=== PATIENT | female | born 2005 | race African-American/Black ===

== ENCOUNTER 2025-05-03 18:08 | Observation (INO) | payer OTHER, SELFPAY ==
--- OUTSIDE RECORDS SUMMARY | 2025-04-27 19:00 | XMS_ITS | Continuity of Care Document ---
Author Organization [facility] Address [address] [place] [address] Phone Care Team Providers Care Block Out Machine Operator Name Role Phone Inocencio PT, DPT, Carrol Unavailable Unavaila ble Procedures Procedure Date Waive Cancel or No Show - No Charge PT Evaluation High Complexity Therapeutic Activities Neuromuscular Re-Ed Therapeutic Exercise Advance Directives Directive Yes / No Effective Date File Name No Information Encounters Encounter Description Practice Location Reason(s) For Visit Diagnoses Date Provider Providers Copied on Encounter [facility], [address], [place], [place], [id number], tel:[phone] [place] No Information Inocencio Carrol. . Referring Provider: Physician Screen. [facility], [address], [place], [place], [id number], tel:[phone] [place] No Information Inocencio Carrol. . Referring Provider: Access Direct. Family History Family Member Type Diagnosis Age At Onset No Information Payers Payer name Insurance type Covered libertarian ID Authoriza tion(s) No Information Social History Type Description Quantity Date Captured Comments Sex Female Smoking Status No Information Chief Complaint And Reason For Visit No Information Reason For Referral Reason For Referral No Information Plan Of Treatment Date Type Action Status Appointment Geena Miguel BOOKED Appointment Geena Miguel BOOKED History Of Present Illness Encounter Date Complaint History Of Prese nt Illness No Information Functional Status Date Functional Assessmen t No Information Instructions Date Instruction Additional Infor mation No Information Assessments Type Assessment Date No Information Patient Care Teams Name Effective Dates (start - stop) Status Members No Information
[2025-05-03 18:14] VITALS: TEMP 36.6
--- OUTSIDE RECORDS SUMMARY | 2025-05-03 18:28 | XMS_ITS | Patient Health Record ---
Author Organization [facility] Address [address] [place] [address] Care Team Providers Care Seat Installer Name Role Phone ESTEBAN HOSKINS Unavailable [phone] Reason For Referral No Information Medications Medication SIG (Take, Route, Frequency, Duration) Notes Start Date End Date Status drug or medication *please revie w for potential update for e-prescription and drug interaction check* drug or medication Active Immunizations Vaccine Route Administration Date Status Comme nts Varicella Unknown 06/09/2005 Administered Varicella Unknown 01/14/2009 Administered Tdap Unknown 03/31/2015 Administered Pneumococcal conjugate PCV 13 Unknown 2004 Admini stered Pneumococcal conjugate PCV 13 Unknown 2004 Admini stered Pneumococcal conjugate PCV 13 Unknown 2004 Admini stered Pneumococcal conjugate PCV 13 Unknown 06/09/2005 Admini stered MMR Unknown 06/09/2005 Administered MMR Unknown 01/14/2009 Administered Meningococcal MCV4O (CVX 114) Unknown 03/31/2015 Admini stered IPV Unknown 01/14/2009 Administered Influenza, injectable, quadrivalent, preservative free, pediatric Unknown 06/09/2005 Administered Influenza, injectable, quadrivalent, preservative free, pediatric Unknown 07/14/2005 Administered Hib (PRP-T), 4 dose schedule Unknown 2004 Adminis tered Hib (PRP-T), 4 dose schedule Unknown 2004 Adminis tered Hib (PRP-T), 4 dose schedule Unknown 06/09/2005 Adminis tered Hep B, adolescent or pediatr ic 3 dose schedule Unknown 2004 Administered Hep A, ped/adol, 2 dose Unknown 11/29/2005 Administered Hep A, ped/adol, 2 dose Unknown 11/17/2006 Administered DTaP-Hep B-IPV Unknown 2004 Administered DTaP-Hep B-IPV Unknown 2004 Administered DTaP-Hep B-IPV Unknown 2004 Administered DTaP Unknown 11/29/2005 Administered DTaP Unknown 01/14/2009 Administered Problems Problem Type SNOMED Code ICD Code Onset Dates Problem Status W/U Status Risk Notes Problem Well child (896124694) Well child (V20.2) 05/17/2018 Active confirmed Problem Well child (545168996) Well child (668855312) 05/17/2018 Active confirmed Problem Normal weight (55679670) Normal weight (V85.52) 05/17/2018 Active confirmed Problem Normal weight (03494808) Normal weight (Z68.52) 05/17/2018 Active confirmed Problem Well child (190056685) Well child (Z00.129) 05/17/2018 Active confirmed Plan Of Treatment No Information
--- OUTSIDE RECORDS SUMMARY | 2025-05-03 18:28 | XMS_ITS | Clinical Summary ---
Author Organization [facility] Address [address] [place] [address] Care Team Providers Care Cooling Tower Technician Name Role Phone Kenyetta Wilson MD Primary Care Provider Source Comments [facility],non-owned Affiliates and Associated Physician Practices is amultiple site organization consisting of ambulatory clinics and hospital sitesin [place], [place], [place] and [place]. This disclosure is being madepursuant to the Care Everywhere program and may not contain all information available regarding this patient. Last updated 18.[facility] Allergies No known active allergies Medications * This document contains information received from the source organization and may not represent a complete record from that organization. * Be aware that medications may not be up to date on this document. Alwaysverify current medications with the patient. No known medications Active Problems Problem Noted Date Diagnosed Date Intentional drug overdose, initial encounter Suicide attempt 05/31/2023 Cannabis use, uncomplicated 05/31/2023 Social History Tobacco Use Types Packs/Day Years Used Date Smoking Tobacco: Never Smokeless Tobacco: Never Tobacco Cessation:Counseling Given: Not Answered Alcohol Use Standard Drinks/Week Comments Not Currently 0 (1 standard drink = 0.6 oz pur e alcohol) AUDIT-C Answer Date Recorded Q1: How often do you have a drink containing alcohol? Never 06/01/2023 Q2: How many drinks containi ng alcohol do you have on a typical day when you are drinking? Patient does not drink Q3: How often do you have si x or more drinks on one occasion? Never 06/01/2023 Overall Financial Resource Strain (CARDIA) Answe r Date Recorded How hard is it for you to pa y for the very basics like food, housing, medical care, and heating? Not hard at all 05/31/2023 [facility] Occupat ional Health - Occupational Stress Questionnaire Answer Date Recorded Do you feel stress - tense, restless, nervous, or anxious, or unable to sleep at night because your mind is troubled all the time - these days? Not at all 05/31/2023 Hunger Vital Sign Answer Date Recorded Within the past 12 months, y ou worried that your food would run out before you got the money to buy more. Never true 05/31/20 23 Within the past 12 months, t he food you bought just didn't last and you didn't have money to get more. Never true 05/31/2023 PRAPARE - Transportation Answer Date Re corded In the past 12 months, has l ack of transportation kept you from medical appointments or from getting medications? No 05/14 In the past 12 months, has l ack of transportation kept you from meetings, work, or from getting things needed for daily living? No 05/31/2023 Housing Stability Vital Sign Answer Acosta e Recorded In the last 12 months, was t here a time when you were not able to pay the mortgage or rent on time? No 05/31/2023 In the last 12 months, how many places have you lived? 1 05/31/2023 In the last 12 months, was t here a time when you did not have a steady place to sleep or slept in a assisted (including now)? No 05/31/2023 Comments Unknown Sex and Gender Information Value Date Recorded Sex Assigned at Not on file Legal Sex Female 1:14 PM CDT Gender Identity Not on file Sexual Orientation Not on file Last Filed Vital Signs Vital Sign Reading Time Taken Comments Blood Pressure 151/80 07/18/2024 7:42 PM CEMETERY VAULT INSTALLER Pulse 97 07/18/2024 7:42 PM CEMETERY VAULT INSTALLER Temperature 36.5 C (97.7 F) 07/18/2024 7:42 PM CEMETERY VAULT INSTALLER Respiratory Rate 20 07/18/2024 7:42 PM CEMETERY VAULT INSTALLER Oxygen Saturation 100% 07/18/2024 7:42 PM CEMETERY VAULT INSTALLER Inhaled Oxygen Concentration - - Weight 86.3 kg (190 lb 3.2 oz) 07/18/2024 7:42 P M CEMETERY VAULT INSTALLER Height 172.7 cm (5' 8) 07/18/2024 7:42 PM CEMETERY VAULT INSTALLER Body Mass Index 28.92 07/18/2024 7:42 PM CEMETERY VAULT INSTALLER Plan of Treatment Health Maintenance Due Date Last Done Comments HIV SCREENING 2019 HPV VACCINE (1 - 3-dose series) 2019 MENINGOCOCCAL (Group B) VACCINE SHARED DECISION-MAKING (1 of 2 - Standard) 2020 HEPATITIS C SCREENING 03/14/2022 DTAP/TDAP/TD VACCINES (1 - Tdap) 2023 HEPATITIS B VACCINE (1 of 3 - 19+ 3-dose series) 2023 CHLAMYDIA/GONORRHEA SCREENING 03/27/2024 03/27/2023 DEPRESSION SCREENING 08/14/2024 PAP SMEAR 2025 COVID-19 VACCINE (1 - 2023-2 5 season) 2025 INFLUENZA VACCINE (#1) 2025 5, 06/09/2005 ZOSTER VACCINE (1 of 2) 2054 HIB VACCINE Aged Out No longer eligi ble based on patient's age to complete this topic MENINGOCOCCAL GROUPS A/C/Y/W VACCINE Aged Out No longer eligible b ased on patient's age to complete this topic PNEUMOCOCCAL VACCINE Aged Out No long er eligible based on patient's age to complete this topic Procedures Procedure Name Priority Date/Time Associated Diagnosis Comments CHLAMYDIA + GC AMPLIFIED PROBE STAT 03/27/2023 4:58 PM CDT Screen for STD (sexually transmitted disease) from Last 3 Months or Most Recently Relevant to Health Maintenance Results * CHLAMYDIA + GC AMPLIFIED PROBE (03/27/2023 4:58 PM CDT) Chlamydia Amplified Probe Negative Negative 03/28/2023 12:50 AM CDT [facility] GC Amplified Probe Negative Negative 03/28/2023 12:50 AM CDT [facility] Microbiology ENTIRE VAGINA / Unknown Collection / Unknown 03/27/2023 4:58 PM CDT 03/27/2023 4:58 PM CDT Narrative [facility] - 03/28/2023 12:50 AM CDT Results based on detection/no detection of ribosomal RNA by amplified method. Betsy Cahse SENIOR INFORMATION SECURITY ANALYST-ASSOCIATE PROFESSOR OF [facility] - MICROBIOLOGY ORDERABLES Final Result [facility] [address] [place] [address], [facility] [phone] from Last 3 Months or Most Recently Relevant to Health Maintenance Insurance [place] Advance Directives * Full Code (Latest Code Status on File) Date Activated Date Inactivated Comments 05/31/2023 8:02 PM 06/02/2023 3:10 PM Care Teams Cooling Tower Technician Relationship Specialty Start Date End Date Kenyetta Wilson MD [address] [address] PCP - General Obstetrics and Gynecology 07/18/24
--- OUTSIDE RECORDS SUMMARY | 2025-05-03 18:28 | XMS_ITS | Clinical Summary ---
Author Organization [facility] Address [address] [place] [address] Care Team Providers Care Solution Design Engineer Name Role Phone Kenyetta Wilson MD Primary Care Provider Allergies No known active allergies Medications sertraline (ZOLOFT) 100 mg tabletIndicatio ns:Anxiety with Depression Take 1 tablet (100 mg total) by mouth daily before breakfast 3 Active Active Problems Problem Noted Date Diagnosed Date Closed fracture of left distal radius 05/24/2023 Closed nondisplaced fracture of styloid process of right ulna 05/24/2023 Closed fracture of right distal radius 3 Gestational hypertension, third trimester 2022 Surgical History Surgery Date Site/Laterality Comments WISDOM TOOTH EXTRACTION Family History Medical History Relation Name Comments Anesthesia problems Neg Hx Social History Tobacco Use Types Packs/Day Years Used Date Smoking Tobacco: Never Smokeless Tobacco: Never AUDIT-C Answer Date Recorded Q1: How often do you have a drink containing alcohol? Never 06/08/2023 Q2: How many drinks containi ng alcohol do you have on a typical day when you are drinking? Patient does not drink Q3: How often do you have si x or more drinks on one occasion? Never 06/08/2023 Personal Safety Answer Date Recorded Getting School Help Needed Not on file 05/24 Comments Unknown Sex and Gender Information Value Date Recorded Sex Assigned at Not on file Legal Sex Female 7:27 PM TYPE PHOTOGRAPHY SUPERVISOR Gender Identity Not on file Sexual Orientation Not on file Obstetrics History Last Filed Vital Signs Vital Sign Reading Time Taken Comments Blood Pressure 104/71 05/08/2023 12:30 AM CDT Pulse 89 05/08/2023 12:30 AM CDT Temperature 36.7 C (98 F) 05/07/2023 5:41 PM CDT Respiratory Rate 22 05/08/2023 12:30 AM CDT Oxygen Saturation 99% 05/08/2023 12:30 AM CDT Inhaled Oxygen Concentration - - Weight 93 kg (205 lb) 06/08/2023 8:15 AM CDT Height 172.7 cm (5' 8) 06/08/2023 8:15 AM CDT Body Mass Index 31.17 06/08/2023 8:15 AM CDT Plan of Treatment Health Maintenance Due Date Last Done Comments Cervical Cancer Screening 2004 Depression Screening 2004 Hepatitis C Screening 2004 HPV Vaccines (1 - 3-dose series) 2019 Meningococcal B Vaccine (1 o f 2 - Standard) 2020 Regular Well Visit/Exam 18-64 2022 DTaP/Tdap/Td Vaccine (7 - Td or Tdap) 03/31/2025 03/31/2015, 01/14/2009, 11/29/2005, Additional history exists Influenza Vaccine (#1) 2025 07/14/2005, 2004 Hepatitis B Screening Completed 2004 , 2004, 2004, Additional history exists Pneumococcal vaccine <65 Completed 005, 2004, 2004, Additional history exists Varicella Vaccines Completed 01/14/2009, 06/09/2005 Meningococcal Vaccine Completed 04/09/2021, 015 Insurance [facility] CHO[employer] PLUS Care Teams Solution Design Engineer Relationship Specialty Start Date End Date Kenyetta Wilson MD [address] [facility] [address] [place] [address] PCP - General Obstetrics and Gynecology 05/07/23
--- OUTSIDE RECORDS SUMMARY | 2025-05-03 18:28 | XMS_ITS | Encounter Summary ---
Author Organization [facility] Address [address] [place] [address] Care Team Providers Care Sewer And Inspector Name Role Phone Kenyetta Wilson MD Primary Care Provider Reason for Visit * Reason Onset Date Comments Returned Call 03/29/2023 Results 03/29/2023 Patient Requested Call 03/29/2023 Encounter Details Date Type Department Care Team (Late st Contact Info) Description 03/29/2023 Telephone [facility] [address] [place] [address] Carmen Leong APRN-INSULATION MANAGER [address] [place] [address] Returned Call; Results; Patient Requested Call Social History Tobacco Use Types Packs/Day Years Used Date Smoking Tobacco: Never Smokeless Tobacco: Never Comments No Sex and Gender Information Value Date Recorded Sex Assigned at Not on file Legal Sex Female 1:14 PM CDT Gender Identity Not on file Sexual Orientation Not on file documented as of this encounter Miscellaneous Notes * Telephone Encounter - Cristy Monterroso - 03/29/2023 2:36 PM CDT Who is calling? self What is the reason for call? missed call test results Expected Response from the Clinic? Call back documented in this encounter Plan of Treatment Not on file documented as of this encounter Visit Diagnoses Not on filedocumented in this encounter Care Teams Sewer And Inspector Relationship Specialty Start Date End Date Kenyetta Wilson MD [address] [facility] [address], [place] [address] PCP - General Obstetrics and Gynecology 07/18/24 documented as of this encounter
--- OUTSIDE RECORDS SUMMARY | 2025-05-03 18:28 | XMS_ITS | Clinical Summary ---
Author Organization [facility] Address [address] [place] [address] Phone Care Team Providers Care Garbage Worker Name Role Phone Unavailable Primary Care Provider Unavailabl e Allergies No known active allergies Medications No known medications Active Problems Problem Noted Date Diagnosed Date Gestational hypertension, third trimester 2022 Normal labor 03/13/2023 Encounters Date Type Department Care Team Description 04/01/2025 External Device Data [facility] ABSTRACTION Provider, Abstract from Last 3 Months Social History Tobacco Use Types Packs/Day Years Used Date Smoking Tobacco: Never Passive Smoke Exposure: Never Smokeless Tobacco: Never Tobacco Cessation:Counseling Given: Not Answered Alcohol Use Standard Drinks/Week Comments Not Currently 0 (1 standard drink = 0.6 oz pur e alcohol) Adolescent Education Answer Date Record ed Getting School Help Needed Not on file 02/28 Feeling Safe Answer Date Recorded Are you in a relationship wi th someone who hurts you emotionally and/or physically? No 03/13/2023 Comments No Sex and Gender Information Value Date Recorded Sex Assigned at Not on file Legal Sex Female 4:09 PM CDT Gender Identity Not on file Sexual Orientation Not on file Last Filed Vital Signs Vital Sign Reading Time Taken Comments Blood Pressure 100/60 04/10/2024 2:21 PM CDT Pulse 90 03/15/2023 7:46 AM CDT Temperature 36.4 C (97.5 F) 03/15/2023 7:46 AM CDT Respiratory Rate 18 03/15/2023 7:46 AM CDT Oxygen Saturation 99% 03/13/2023 8:16 PM CDT Inhaled Oxygen Concentration - - Weight 81.6 kg (180 lb) 04/10/2024 2:21 PM CDT Height 172.7 cm (5' 8) 04/10/2024 2:21 PM CDT Body Mass Index 27.37 04/10/2024 2:21 PM CDT Plan of Treatment Health Maintenance Due Date Last Done Comments CHLAMYDIA SCREENING (ANNUAL) 11-24 YEARS 2015 HPV VACCINES (1 - 3-dose series) 2019 DTAP/TDAP/TD VACCINES (1 - Tdap) 2023 HEPATITIS B VACCINES (1 of 3 - 19+ 3-dose series) 12/2022 INFLUENZA VACCINE (#1) 2025 CERVICAL CANCER SCREENING 2025 HPV/Cotest (21-29) 2025 PAP SMEAR 2025 Advance Directives For more information, please contact: [phone] * Full Code (Latest Code Status on File) Date Activated Date Inactivated Comments 03/13/2023 9:40 PM 03/15/2023 3:43 PM * Full Code Date Activated Date Inactivated Comments 03/13/2023 8:56 AM 03/13/2023 9:40 PM * Full Code Date Activated Date Inactivated Comments 03/13/2023 7:05 AM 03/13/2023 8:56 AM
--- OUTSIDE RECORDS SUMMARY | 2025-05-03 18:28 | XMS_ITS | Encounter Summary ---
Author Organization [facility] Address [address] [place] [address] Phone Care Team Providers Care Licensed Customs Broker Name Role Phone Kenyetta Wilson MD Primary Care Provider Encounter Details Date Type Department Care Team (Latest Contact Info) Description 05/24/2023 Orders Only [facility] HAND/WRIST Scanning, Provider Social History Tobacco Use Types Packs/Day Years Used Date Smoking Tobacco: Never Smokeless Tobacco: Never Personal Safety Answer Date Recorded Have you ever been in or are you currently in a harmful physical or emotional relationship or is someone making you feel afraid or unsafe? Denies 05/07/2023 Comments Unknown Sex and Gender Information Value Date Recorded Sex Assigned at Not on file Legal Sex Female 7:27 PM ACCOUNT INSTALLATION SPECIALIST Gender Identity Not on file Sexual Orientation Not on file documented as of this encounter Plan of Treatment Not on file documented as of this encounter Procedures Procedure Name Priority Date/Time Associated Diagnosis Comments SCAN - RADIOLOGY/IMAGING 05/24/2023 documented in this encounter Results * SCAN - RADIOLOGY/IMAGING (05/24/2023) Anatomical Region Laterality Modality Other us Provider Scanning Edited Result - Final documented in this encounter Visit Diagnoses Not on filedocumented in this encounter Care Teams Licensed Customs Broker Relationship Specialty Start Date End Date Kenyetta Wilson MD [address] [place] [address] PCP - General Obstetrics and Gynecology 05/07/23 documented as of this encounter
--- OUTSIDE RECORDS SUMMARY | 2025-05-03 18:28 | XMS_ITS | Encounter Summary ---
Author Organization [facility] Address [address] [place] [address] Phone Care Team Providers Care Paleontological Helper Name Role Phone Kenyetta Wilson MD Primary Care Provider Encounter Details Date Type Department Care Team (Latest Contact Info) Description 05/10/2023 Orders Only LYON OS HAND/WRIST Scanning, Provider [...] on file Legal Sex Female 7:27 PM ELL TUTOR Gender Identity Not on file Sexual Orientation Not on file documented as of this encounter Plan of Treatment Not on file documented as of this encounter Procedures Procedure Name Priority Date/Time Associated Diagnosis Comments SCAN - RADIOLOGY/IMAGING 05/10/2023 documented in this encounter Results * SCAN - RADIOLOGY/IMAGING (05/10/2023) Anatomical Region Laterality Modality Other us Provider Scanning Final Result documented in this encounter Visit Diagnoses Not on filedocumented in this encounter Care Teams Paleontological Helper Relationship Specialty Start Date End Date Kenyetta Wilson MD [address] [place] [address] PCP - General Obstetrics and Gynecology 05/07/23 documented as of this encounter
[2025-05-03 18:30] VITALS: BP 125/67; PULSE 88
[2025-05-03 18:31] VITALS: BMI 33.6
--- NOTE | 2025-05-03 18:32 | OBADM ---
This patient, Geena Miguel, admitted to the OB room OB Post 116 for observation. Patient/family oriented to hospital policies and general routines including ID bracelet, bed and alarms, visiting hours, pain management, procedures, bathroom and other care routines, personal items, smoking policy, room service/diet, and visiting hours. Patient/Family are encouraged to report perceived risks to care and to ask questions if they do not understand what they are told or what they should do.
[2025-05-03 18:45] VITALS: BP 127/67; PULSE 90
[2025-05-03 18:56] LABS: Add Urine Microscopic? YES; Appearance Urine Clear (Clear); Glucose Urine UA Negative (Negative); Leukocyte Esterase Ur 3+ LEU/UL (Negative); Need Manual Microscopic Reviewed; Nitrate Urine Negative (Negative); Non Pathogenic Casts 0-2; Specific Grav Ur 1.018 (1.001-1.035)
[2025-05-03 19:00] VITALS: BP 117/61; PULSE 89
--- NOTE | 2025-05-03 19:04 | PC.NURSE ---
Call placed to Dr. Loyola with report of pt symptoms and c/o vaginal pressure, pain, lower abd pain. FHR, CTX, Vitals and Labs reported. Order to discharge pt home undelivered with Keflex 500 mg twice daily for 5 days and to come back if pain worsens.
[2025-05-03] MEDS: CEPHALEXIN 500 MG CAPSULE PO (19:18)
--- NOTE | 2025-05-03 19:25 | PC.NURSE ---
Discharge instructions explained and given to pt. Discussed antibiotics and suspected UTI and to return if pain continues/increases. Pt stated understanding, all questions and concerns answered. Pt waiting for her ride before leaving.
--- NOTE | 2025-05-03 20:18 | PC.NURSE ---
Pt discharged home undelivered in stable condition per order from Dr. Loyola. Pt ambulated out of department with all belongings. Discharge paperwork in hand.
--- NOTE | 2025-05-06 09:43 | P.PNOB_ITS ---
OB - Triage/Final Diagnosis Visit Information Comments/Additional reasons for admission: I have assessed the risk for this patient, Geena Miguel, and determined that she would benefit from observation care. Evaluation Laboratory results: Laboratory Tests 05/03/25 18:35 Urine Color Yellow Urine Appearance Clear Urine pH 7.5 Ur Specific [place] 1.018 Urine Protein Trace Urine Glucose (UA) Negative Urine Ketones Negative Ur Blood (Man) Negative Urine Nitrate Negative Urine Bilirubin Negative Urine Urobilinogen 2.0 H Add Ur Microanalysis Reviewed Leukocyte Esterase Rfl 3+ H Urine RBC 0-2 Urine WBC 0-5 Ur Squamous Epith Cells Occasional Urine Bacteria 1+ H Urine Casts 0-2 Final Diagnosis (1) Pelvic pressure in : Code(s): O26.899 - Other specified related conditions, unspecified trimester; R10.2 - Pelvic and perineal pain Status: Acute
== END 2025-05-03 20:18 | disposition home or self-care (01) ==
PROVIDERS: Obstetrics & Gynecology; Admitting Provider Obstetrics & Gynecology; Visit Provider Obstetrics & Gynecology
DX: O26.893 Other specified pregnancy related conditions, third trimester (principal); R10.2 Pelvic and perineal pain; Z3A.36 36 weeks gestation of pregnancy
CPT/HCPCS: 81001; 87086; A9270; G0378; G0379

== ENCOUNTER 2025-05-27 15:45 | Inpatient (IN) | payer OTHER, SELFPAY ==
[2025-05-27] VITALS (57 sets, daily range): BP systolic 88–151; BP diastolic 35–107; PULSE 76–183; RESP 17–18; TEMP 36.8–37.4; O2SAT 96–100; BMI 33.7
[2025-05-27] MEDS: LACTATED RINGERS 1,000 ML 125 ML (16:07)
--- NOTE | 2025-05-27 16:23 | LDADM ---
This patient, Geena Miguel, was admitted to Labor/Delivery/Recovery 104 on 05/27/25 at 15:45. Plans for labor, pain management and were discussed with patient. Patient/family oriented to hospital policies and general routines including ID bracelet, bed and alarms, visiting hours, pain management, procedures, bathroom and other care routines, personal items, smoking policy, room service/diet and guest tray routines, security routines, and visiting hours. Patient/Family are encouraged to report perceived risks to care and to ask questions if they do not understand what they are told or what they should do. See OBIX for further documentation.
[2025-05-27 16:28] LABS: Hematocrit 33.8 % (37.0-47.0); Hemoglobin 10.3 g/dL (12.0-15.0); Immature Granulocyte Percent A 0.5 % (0-0.5); Lymphocytes Absolute Auto 3.08 K/mm3 (0.9-3.2); Mean Corpuscular HGB Conc 30.5 g/dl (32-36); Mean Corpuscular Hemoglobin 23.2 pg (26-34); Mean Corpuscular Volume 76.1 fl (80-100); Nucleated Red Blood Cells Absolute Auto 0.000 K/mm3 (0.0-0.012); Nucleated Red Blood Cells Perc 0.0 % (0.0-0.2); Platelet Count Result 289 k/mm3 (150-375); Red Blood Count 4.44 M/mm3 (4.2-5.4); White Blood Count 12.2 K/mm3 (4.5-10.0)
[2025-05-27] MEDS: AMPICILLIN SODIUM 2 GM in SODIUM CHLORIDE 0.9% IV 100 ML 200 ML IVPB (16:34)
--- NOTE | 2025-05-27 17:10 | WPDANESEPPF ---
Anes - Initial Pre Proc Eval Date/Time: 05/27/25 17:10 Surgeon: Kirby Lawson MD Pre Op Diagnosis: LABOR Patient Data Age: 20 Gender: F Height: 1.73 m Weight: 100.5 kg Last Vital Signs Pulse 99 05/27/25 17:09 BP 149/35 H 05/27/25 17:09 Pulse Ox 98 05/27/25 17:07 O2 Del Method Room Air 05/27/25 16:15 Allergies Allergy/AdvReac Type Severity Reaction Status Date / Time No Known Allergies Allergy Verified 05/27/25 16:33 Home Medications ?Medication ?Instructions ?Recorded ?Confirmed ?Type vit no.95-ferrous 1 tablet PO DAILY 04/30/25 05/27/25 History fumarate 28 mg-folic acid 800 mcg tablet () valacyclovir 500 mg tablet 500 mg PO Q12H 04/30/25 05/27/25 History (Valtrex) sertraline 100 mg tablet mg 05/27/25 History Laboratory Tests 05/27/25 16:11 WBC 12.2 H K/mm3 (4.5-10.0) RBC 4.44 M/mm3 (4.2-5.4) Hgb 10.3 L g/dL (12.0-15.0) Hct 33.8 L % (37.0-47.0) MCV 76.1 L fl (80-100) MCH 23.2 L pg (26-34) MCHC 30.5 L g/dl (32-36) RDW 16.9 H % (11.5-14.5) Plt Count 289 k/mm3 (150-375) MPV 12.6 H fl (7.4-10.4) Immature Gran % (Auto) 0.5 % (0-0.5) Neut % (Auto) 66.2 % (45.5-73.1) Lymph % (Auto) 25.3 % (18.3-44.2) [place] % (Auto) 7.4 % (2.6-8.5) Eos % (Auto) 0.2 % (0-4.4) Baso % (Auto) 0.4 % (0.2-1.2) Lymph # (Auto) 3.08 K/mm3 (0.9-3.2) [place] # (Auto) 0.9 H K/mm3 (0.1-0.6) Eos # (Auto) 0.0 K/mm3 (0-0.3) Baso # (Auto) 0.1 K/mm3 (0.0-0.1) Abs Immat Gran (auto) 0.06 H K/mm3 (0.00-0.031) Absolute Neuts (auto) 8.1 H K/mm3 (1.3-6.7) Absolute Nucleated RBC 0.000 K/mm3 (0.0-0.012) Nucleated RBC % 0.0 % (0.0-0.2) HIV 1&2 Ab/P24 Ag 4thGn Pending Blood Type O Positive Antibody Screen Pending Patient hx anesthesia problems: none Family hx anesthesia problems: none Results Review: All pre-operative results and documents have been reviewed as part of the pre-operative evaluation. [facility] Family History Family History Other No pertinent family history Social History Social History Smoking status: Never smoker Substance use: never Lack of Transportation: No Lack of Food: Never True Current Housing: I Have Housing Concerned About Future Housing: No Difficulty Paying Gas/Electric Bills: No Difficulty Paying for Meds: No Currently Unemployed: YES Education: High School Diploma/GED Difficulty w/ Childcare or Family Care: No Spiritual care concerns: No Anes - Eval Final PreProcedure Day of Procedure 05/27/25 17:10 Patient weight: obese Heart: regular rate and rhythm Lungs: clear to auscultation Neurological: alert and oriented Last oral intake: >/= 8 hours ASA classification: III Emergent: no Anesthetic plan: proceed Anesthesia type and monitoring: regional epidural and standard monitoring Results Review: All pre-operative results and documents have been reviewed as part of the pre-operative evaluation. Informed Consent: The patient's anesthetic plan and its attendant risks and benefits were discussed with the patient/family/POA. Questions were solicited and answers provided to the satisfaction of the patient/family/POA.
[2025-05-27 17:11] LABS: Syphilis IgG/IgM Antibody Non-Reactive (Nonreactive)
--- OUTSIDE RECORDS SUMMARY | 2025-05-27 17:24 | XMS_ITS | Encounter Summary ---
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
--- OUTSIDE RECORDS SUMMARY | 2025-05-27 17:24 | XMS_ITS | Clinical Summary ---
Author Organization [facility] Address [address] [place] [address] Care Team Providers Care Metal Alloy Scientist Name Role Phone Kenyetta Wilson MD Primary Care Provider Source Comments [facility],non-owned Affiliates and Associated Physician Practices is amultiple site organization consisting of ambulatory clinics and hospital sitesin [place], [place], [place] and [place]. This disclosure is being madepursuant to the Care Everywhere program and may not contain all information available regarding this patient. Last updated 18.[facility] Allergies No known active allergies Medications * [...] and heating? Not hard at all 05/31/2023 [facility] Occupat [facility] - Occupational Stress [...] place to sleep or slept in a fpc (including now)? No 05/31/2023 Comments Unknown Sex and Gender Information Value Date Recorded Sex Assigned at Not on file Legal Sex Female 1:14 PM CDT Gender Identity Not on file Sexual Orientation Not on file Last Filed Vital Signs Vital Sign Reading Time Taken Comments Blood Pressure 151/80 07/18/2024 7:42 PM LICENSED NURSE PRACTITIONER Pulse 97 07/18/2024 7:42 PM LICENSED NURSE PRACTITIONER Temperature 36.5 C (97.7 F) 07/18/2024 7:42 PM LICENSED NURSE PRACTITIONER Respiratory Rate 20 07/18/2024 7:42 PM LICENSED NURSE PRACTITIONER Oxygen Saturation 100% 07/18/2024 7:42 PM LICENSED NURSE PRACTITIONER Inhaled Oxygen Concentration - - Weight 86.3 kg (190 lb 3.2 oz) 07/18/2024 7:42 P M LICENSED NURSE PRACTITIONER Height 172.7 cm (5' 8) 07/18/2024 7:42 PM LICENSED NURSE PRACTITIONER Body Mass Index 28.92 07/18/2024 7:42 PM LICENSED NURSE PRACTITIONER Plan of Treatment Health Maintenance Due Date [...] Negative Negative 03/28/2023 12:50 AM CDT [facility]CRO[facility] GC Amplified Probe Negative Negative 03/28/2023 12:50 AM CDT [facility]CRO[facility]OLOG[facility] Microbiology ENTIRE VAGINA / Unknown Collection / Unknown 03/27/2023 4:58 PM CDT 03/27/2023 4:58 PM CDT Narrative [facility]CROBIOLOG[facility] - 03/28/2023 12:50 AM CDT Results based on detection/no detection of ribosomal RNA by amplified method. Betsy Chase MECHANICAL ENGINEERING MANAGER-CITY MAINTENANCE MANAGER LAB - MICROBIOLOGY ORDERABLES Final Result [facility]CROBIOLOG[facility] [address] [place] [address], [facility] [phone] from Last 3 Months or Most Recently Relevant to Health Maintenance Insurance [place] Advance Directives * Full Code (Latest Code Status on File) Date Activated Date Inactivated Comments 05/31/2023 8:02 PM 06/02/2023 3:10 PM Care Teams Metal Alloy Scientist Relationship Specialty Start Date End Date Kenyetta Wilson MD [address] [address] PCP - General Obstetrics and Gynecology 07/18/24
--- OUTSIDE RECORDS SUMMARY | 2025-05-27 17:24 | XMS_ITS | Encounter Summary ---
Author Organization [facility] Address [address] [place] [address] Care Team Providers Care Pool Technician Name Role Phone Kenyetta Wilson MD Primary Care Provider Reason for Visit * Reason Onset Date Comments Returned Call 03/29/2023 Results 03/29/2023 Patient Requested Call 03/29/2023 Encounter Details Date Type Department Care Team (Late st Contact Info) Description 03/29/2023 Telephone [facility] [address] [place] [address] Carmen Leong APRN-HOME ENERGY RATER [address] [place] [address] Returned Call; Results; Patient Requested [...] on filedocumented in this encounter Care Teams Pool Technician Relationship Specialty Start Date End Date Kenyetta Wilson MD [address] [facility] [address] [address] PCP - General Obstetrics and Gynecology 07/18/24 documented as of this encounter
--- OUTSIDE RECORDS SUMMARY | 2025-05-27 17:24 | XMS_ITS | Clinical Summary ---
Author Organization [facility] Address [address] [place] [address] Phone Care Team Providers Care Novelty Dipper Name Role Phone Unavailable Primary Care Provider [...] Advance Directives For more information, please contact: [phone] * Full Code (Latest Code Status on File) Date Activated Date Inactivated Comments 03/13/2023 9:40 PM 03/15/2023 3:43 PM * Full Code Date Activated Date Inactivated Comments 03/13/2023 8:56 AM 03/13/2023 9:40 PM * Full Code Date Activated Date Inactivated Comments 03/13/2023 7:05 AM 03/13/2023 8:56 AM
--- OUTSIDE RECORDS SUMMARY | 2025-05-27 17:24 | XMS_ITS | Encounter Summary ---
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
--- OUTSIDE RECORDS SUMMARY | 2025-05-27 17:24 | XMS_ITS | Data Portability ---
Author Organization [facility] [place] Address [address] [place] [address] [place] [address] Care Team Providers Care Heater Room Helper Name Role Phone JAIRO SALAZARA Primary Care Provider Assessment Encounter Date Assessment Date Assessment LastModified by Organization Details LastModified Time 05/02/2025 05/02/2025 Patient is _36__weeks . Discussed plan. [email or web address] Not available 05/02/2025 09:53:57 05/09/2025 05/09/2025 Patient is _37__weeks . Discussed plan. [email or web address] Not available 05/09/2025 14:00:08 05/21/2025 05/21/2025 Patient is _38__weeks . Discussed plan. [email or web address] Not available 05/21/2025 12:18:07 Plan of Treatment Reminders Order Date Submit Date Provider Last Modified By Organization Details Last Modified Time Details Appointments OB ROUTINE 2024 11:15A Ross Stovall CNM Not available Not available Not available Lab None recorded. Referral None recorded. Procedures None recorded. Surgeries None recorded. Imaging US, obstetric , follow-up 2024 025 [email or web address] [place], [address], [place], [address], 05/21/2025 11:30:49 US, obstetric , follow-up 2024 025 [email or web address] [place], [address], [place], [address], 04/23/2025 16:21:32 Medication Orders Diflucan 150 mg tablet 2024 025 [id number], [address] [place], [id number], 05/09/2025 12:40:36 Patient TargetsNo targets recorded. Patient InstructionsNo instructions recorded. Reason for Referral None Reported. Results Created Date Observation Date Name Description Value Unit Range Abnormal Flag Note LastModifiedBy Organization Detail LastModifiedTime 05/02/2005/02/2025 CULTU RE: GROUP B STREP SCREE N, REFLE X SUSCE PTIBI LITY result report SEE RESULT S BELOW abnormal Test: Cultu re: Group B Strep , Refle x Susce ptibi lity ([facility]/ [facility]/K [facility] ) Speci men Sourc e: Vagin a/Rec mary Speci men Type: Vagin al/Re ctal Speci men Date: 2024 1045 Resul t Date: 2024 1426 Resul t Statu s: Final resul t Abnor mal: Yes Resul ting Lab: [facility] [address] [facility] [address] Tel: CULTU RE ----- ----- ----- --- Posit mamie for Strep tococ cus agala ctiae (Grou p B) (Abno rmal) Clind amyci n = resis tant, eryth romyc in = resis tant. Cefaz ishan may be used for intra partu m proph ylaxi s in penic illin -marisol rgic women at low risk, and Vanco mycin is recom rafaela d for women at high risk for anaph ylaxi s. Susce ptibi lity testi ng is not neces carlos for these drugs . Not Available [facility] (Lab) [address] [facility], [place], [address], 05/06/2025 15:30:11 03/26/2003/26/2025 US, obste tric, follo w-up No observ ation record ed. [facility] [address], [place], [address], 03/26/2025 18:50:29 03/26/2003/26/2025 US, obste tric, follo w-up No observ ation record ed. [email or web address] [address], [place], [address], 03/31/2025 17:53:14 04/15/2004/15/2025 US, obste tric, limit ed No observ ation record ed. [facility] [address], [place], [address], 04/15/2025 12:59:54 04/15/20 25 04/15/2025 US, obste tric, limit ed No observ ation record ed. [email or web address] [address], [place], [address], 04/16/2025 11:28:50 04/23/20 25 04/23/2025 US, obste tric, follo w-up No observ ation record ed. [email or web address] [place] [address], [place], [address], 04/23/2025 13:18:41 04/23/2004/23/2025 US, obste tric, follo w-up No observ ation record ed. [email or web address] [address], [place], [address], 05/02/2025 15:43:50 05/03/2005/03/2025 non-s tress test No observ ation record ed. [address], [place], [address], 05/07/2025 12:44:11 05/03/20 25 05/03/2025 non-s tress test No observ ation record ed. [email or web address], [place], [address], 05/07/2025 12:43:56 05/21/20 25 05/21/2025 US, obste tric, follo w-up No observ ation record ed. [email or web address] [place] [address], [place], [address], 05/21/2025 15:09:31 05/21/20 25 05/21/2025 US, obste tric, follo w-up No observ ation record ed. [email or web address] [address], [place], [address], 05/21/2025 12:22:23 Result Notes None recorded. Problems Name Problem SNOMED Code Status Onset Date Resolution Date Notes Provider Name and Address Organization Details Recorded Time Mixed anxiety and depressiv e disorder 858055189 Active 2024 Shawanda lind, [facility] 5 11:37:49 Herpes simplex 47854299 Active 2024 plan 36 week valcyclov pj Stovall CNM [address], [place], [address], [facility] 5 17:01:14 30708226 Active 2024 Shawanda lind, [facility] 5 16:44:56 Herpes simplex 64017733 Active 2024 plan 36 week valcyclov pj Stovall CNM [address], [place], [address], [facility] 5 17:01:14 Problem Notes None recorded. Procedures Surgical History Date Name Laterality Status Provider Name and Address Organization Details Recorded Time 4 extraction of wisdom tooth completed Shawanda Gonzalez [facility] 12/04/2024 12:38:51 Imaging Results None recorded. Procedure Notes None recorded. Medical Equipment None Reported. Allergies No known drug allergies Medications Name Sig Start Date Stop Date Status Note LastModified by Organization Details LastModified Time amoxicillin 500 mg capsule TAKE 1 CAPSULE BY MOUTH TWICE DAILY FOR 7 DAYS 12/04 completed Not Available Not Available Not Available cetirizine 10 mg tablet TAKE 1 TABLET BY MOUTH DAILY 12/04 completed Not Available Not Available Not Available fluconazole 150 mg tablet TAKE 1 TABLET BY MOUTH NOW AND TAKE 1 TABLET IN 48 HOURS active Not Available Not Available No t Available sertraline 100 mg tablet TAKE 1 TABLET BY MOUTH ONCE DAILY 12/04 completed Not Available Not Available Not Available valacyclovir 500 mg tablet TAKE 1 TABLET BY MOUTH TWICE DAILY active Not Available Not Available No t Available sulfamethoxa zole 800 mg-trimethop rim 160 mg tablet TAKE 1 TABLET BY MOUTH TWICE DAILY FOR 7 DAYS 12/04 completed Not Available Not Available Not Available cephalexin 500 mg capsule TAKE 1 CAPSULE BY MOUTH EVERY 12 HOURS FOR 5 DAYS 05/09 completed Not Available Not Available Not Available amoxicillin 875 mg-potassium clavulanate 125 mg tablet TAKE 1 TABLET BY MOUTH TWICE DAILY FOR 7 DAYS 12/04 completed Not Available Not Available Not Available active Not Available Not Avai lable Not Available Vitals Date Recorded Body height Body mass index (BMI) Body weight Systolic And Diastolic Provider Name and Address Organization Details Last Updated DateTime 04/23/2025 170.18 cm 34.3 kg/m2 17722.73 g 121/81 mm[Hg] [place] [facility] 04/23/2025 12:36:58 Date Recorded Body height Body mass index (BMI) Body weight Systolic And Diastolic Provider Name and Address Organization Details Last Updated DateTime 05/02/2025 170.18 cm 34.6 kg/m2 914418.91 g 120/75 mm[Hg] [facility] 05/02/2025 09:43:49 Date Recorded Body height Body mass index (BMI) Body weight Systolic And Diastolic Provider Name and Address Organization Details Last Updated DateTime 05/09/2025 170.18 cm 35.4 kg/m2 984111.88 g 124/68 mm[Hg] Anna Hutchinson [facility] 05/09/2025 12:28:01 Date Recorded Body height Body mass index (BMI) Body weight Systolic And Diastolic Provider Name and Address Organization Details Last Updated DateTime 05/21/2025 170.18 cm 35.7 kg/m2 239619.06 g 120/78 mm[Hg] Anna Hutchinson [facility] 05/21/2025 11:25:02 Social History Question Answer Notes LastModified by Organizat ion Details LastModified Time Tobacco Smoking Status Never Smoker Shawanda lind [facility] 12/04/2024 12:38:35 Do You Have An Advance Directive? No [email or web address] Information n ot available 12/04/2024 If You Are , What Was Your Level Of Alcohol Consumption Prior To ? None [email or web address] Information not available 12/04/2024 How Many Years Have You Consumed Alcohol? 0 [email or web address] Information not available 12/04/2024 Are You Blind Or Do You Have Difficulty Seeing? No [email or web address] Information n ot available 12/04/2024 What Is Your Level Of Caffeine Consumption? Occasional [email or web address] Information not available 12/04/2024 How Much Tobacco Do You Chew? None [email or web address] Information not available 12/04/2024 In The 14 Days Before Symptom Onset, Have You Had Close Contact With A Laboratory-confirm ed COVID-19 While That Case Was Ill? No [email or web address] Information n ot available 12/04/2024 In The 14 Days Before Symptom Onset, Have You Had Close Contact With A Person Who Is Under Investigation For COVID-19 While That Person Was Ill? No [email or web address] Information not available 12/04/2024 Have You Been To An Area Known To Be High Risk For COVID-19? No [email or web address] Information not available 12/04/2024 Are You Deaf Or Do You Have Serious Difficulty Hearing? No [email or web address] Information not available 12/04/2024 What Type Of Diet Are You Following? REGULAR [email or web address] Information n ot available 12/04/2024 What Is The Highest Grade Or Level Of School You Have Completed Or The Highest Degree You Have Received? [id number] [email or web address] Information not available 12/04/2024 Are There Any Guns Present In Your Home? No [email or web address] Information not available 12/04/2024 Do You Use Protection During Sex? No [email or web address] Information not available 12/04/2024 Do You Use Your Seat Belt Or Car Seat Routinely? Yes [email or web address] Information not available 12/04/2024 Are You Sexually Active? Yes Information not available 03/26/2025 Do You Have Smoke And Carbon Monoxide Detectors In Your Home? Yes [email or web address] Information not available 12/04/2024 How Much Tobacco Do You Smoke? No [email or web address] Information not available 12/04/2024 Do You Use Sunscreen Routinely? No [email or web address] Information not available 12/04/2024 How Many Years Have You Smoked Tobacco? 0 [email or web address] Information not available 12/04/2024 Have You Used IV Drugs? No [email or web address] Information not available 12/04/2024 Do You Have Difficulty Walking Or Climbing Stairs? No [email or web address] Information not available 12/04/2024 Sex: Unknown Functional Status Question Answer Note LastModified by Organizat ion Details LastModified Time Do you use any illicit or recreational drugs? No [email or web address] Information not available 12/04/2024 Do you or have you ever used any other forms of tobacco or nicotine? No [email or web address] Information not available 12/04/2024 What is your level of alcohol consumption? None [email or web address] Information not available 12/04/2024 Are you currently employed? No [email or web address] Information not available 05/02/2025 Are you able to walk independently without assistance or assistive devices? YESWOREST [email or web address] Information not available 12/04/2024 Are you able to care for yourself independently? Yes [email or web address] Information not available 12/04/2024 Do you have difficulty dressing, bathing, grooming, or toileting? No [email or web address] Information not available 12/04/2024 What is your exercise level? Occasional [email or web address] Information not available 12/04/2024 Mental Status Question Answer Note LastModified by Organization D etails LastModified Time Do you feel stressed (tense, restless, nervous, or anxious, or unable to sleep at night)? [id number] [email or web address] Information not available 12/04/2024 Family History Relationship Description Onset Age of this Age Resolved Age Notes LastModified by Organization Details LastModified Time Unspecified Relation Family history unknown [email or web address] Not available 12/04 12:37:24 Medical History Condition Response Allergies (Food, seasonal, environmental ) Y Other N Breast Cancer N Drug/Latex Allergies/Reactions N Blood Transfusion N Dermatologic Disorders N Lung Disease N Defects or Inherited Disease N Breast Problem N Gestational Diabetes N Hematologic disorders N Anesthesia Complications N History of STI Y Deep Vein Thrombosis N Polycystic ovary syndrome N Anxiety Disorder Y Autoimmune disease N Arthritis N Infertility N Polyps N Acid Reflux (GERD) N History of abnormal pap N Cancer N Stroke N Varicosities N Neurologic/Epilepsy N Endometriosis N High Cholesterol N Headaches N Fibromyalgia N Kidney Disease N Heart Problems N Kidney or Bladder Problems N Thyroid Problems N GI Problems N Eating Disorder N Anemia N Art (IVF or FET) N Psychiatric Illness N Ovarian Cancer N Diabetes N Pulmonary (TB, Asthma) N Hepatitis/Liver Disease N No Past Medical History Y Eczema N Urinary Tract Infection N Abuse/Domestic Violence N Asthma N Trauma/Violence N Depression/ depression Y Heart Disease N Pre-Eclampsia N Hypertension N Osteoporosis N Thrombophilias N Gynecological History Statement/Question Response Abnormal Pap N Date of Last Mammogram Date of LMP 08/22/2024 STIs/STDs Y Was last menstrual period normal Y Current Control Method Date of Last Colonoscopy Sexually Active? Y Date of DEXA bone scan Date of Last Pap Smear Sexual Problems? N LMP Approximate Obstetrics History GPAL:G 2 P 1 0 0 1 Type Value Full Term 1 Living 1 Total 2 Past Encounters Encounter ID Performer Location Encounter Start Date Encounter Closed Date Diagnosis/Indication Diagnosis SNOMED-CT Code Diagnosis ICD10 Code Diagnosis IMO Codes Diagnosis Note [id number] Kirby Lawson MD [place] [address],[facility] [place] [address] 12/04/2024 11:00:44 12/04/2024 12:15:18 [id number] [facility] [address] [address] 12/04/2024 11:02:13 12/08/2024 08:20:10 Bacterial disease screening 242940483 Z11.8 12814 screening 2437 20049 Z36.89 Genetic in vestigation procedure 10686418 Z31.430 Exposure to lead 6543145 561 3734392 Z77.011 317703 Amenorrhea 18072671 N91. 2 23221 [id number] Kirby Lawson MD [place] [address],[place] [address] 01/01/2025 15:31:08 01/01/2025 16:59:02 screening for malformation 614989743 Z36.3 Z3A.18 0297075553 [id number] Nany Stovall [facility] [address],[place] [address] 01/01/2025 15:31:33 01/01/2025 17:02:42 Gestation period, 20 weeks 74689487 Z3A.20 1567585 cont pnv Gestation period, 18 weeks 60818573 Z3A.18 9454516 [id number] RAYNA LEE MD [place] [address],[place] [address] 01/29/2025 09:29:18 01/29/2025 10:47:23 disorder suspected 893613023 O35.8XX0 Z3A.22 052167 [id number] RAYNA LEE MD [place] [address],[place] [address] 01/29/2025 09:29:27 01/29/2025 15:17:58 Breech presentation 5772565 O32.1XX0 55182924 repeat US at 32 weeks Gestation period, 22 weeks 18953129 Z3A.22 2814053 continue PNV [id number] RAYNA LEE MD [place] [address],[place] [address] 02/26/2025 10:17:04 02/26/2025 10:44:52 Second trimester 23199653 Z34.02 44388043 - continue PNV- GCT, HIV, RPR and CBC ordered today [id number] Kirby Lawson MD [place] [address],[place] [address] 03/26/2025 14:32:34 03/26/2025 15:11:03 Observational assessment 903421584 Z03.74 Z36.89 Z3A.30 0890481 [id number] Nany Stovall [facility] [address],[place] [address] 03/26/2025 14:32:52 03/26/2025 15:38:30 Gestation period, 30 weeks 45780726 Z3A.30 5036799 [id number] Nany Stovall [facility] [address],[place] [address] 04/11/2025 15:32:21 04/11/2025 16:02:01 Gestation period, 33 weeks 12380616 Z3A.33 7567401 cont pnv [id number] Kirby Lawson MD [place] [address],[place] [address] 04/15/2025 11:33:26 04/15/2025 12:18:32 Spotting per vagina in 391839726 O26.853 Z3A.33 8176551 [id number] Kirby Lawson MD [place] [address],[place] [address] 04/23/2025 12:00:07 04/23/2025 12:36:36 care status 205783349 O36.5930 Z3A.34 482483 [id number] Nany Stovall [facility] [address],[place] [address] 04/23/2025 12:22:31 04/23/2025 13:31:25 Gestation period, 34 weeks 52535075 Z3A.34 1620580 Herpes simplex 93453873 B00.9 [id number] [facility] [address],[place] [address] 05/02/2025 09:35:39 05/02/2025 09:59:59 Gestation period, 36 weeks 28685325 Z3A.36 5521999 [id number] Nany Stovall CNM [place] [address],[place] [address] 05/09/2025 12:10:52 05/09/2025 14:52:45 Mycosis 9019828 B37.9 159961 Gestation period, 37 weeks 34091478 Z3A.37 5084395 cont pnv [id number] Kirby Lawson MD [place] [address],[place] [address] 05/21/2025 10:41:10 05/21/2025 11:23:54 Observational assessment 606863550 Z03.74 Z3A.38 1773983 [id number] Nnay Stovall CNM [facility] [address],[place] [address] 05/21/2025 10:41:57 05/21/2025 12:37:27 Gestation period, 38 weeks 71182873 Z3A.38 9598172 cont pnv Health Concerns Section Related Observation LastModified by Organization Detai ls LastModified Time None Recorded Concern Status LastModified by Organization Details LastModified Time None Recorded Advance Directives Directive N: Payers Insurance Date Sequence Insurance Name Policy Number Policy Butler Covered Member ID Butler Member ID Guarantor Name 05/26/2025 1 [facility] ON OR AFTER 02/11/21 (MEDICAID REPLACEMENT - HMO) Bereket Miguel [id number] Geena Miguel Notes Date Note Type Note Provider Name and Address Organization Details Recorded Time 04/23/2025 text/html Generic HPI TemplateReported by Patient [address], [place], [address], [facility] 04/23/2025 13:26:16 05/02/2025 text/html Generic HPI TemplateReported by Patient [address], [place], [address], [facility] 05/02/2025 09:59:56 05/09/2025 text/html Generic HPI TemplateReported by Patient Nany Derrick Stovall CNM [address], [place], [address], [facility] 05/09/2025 14:00:32 05/21/2025 text/html Generic HPI TemplateReported by Patient Nany Stovall CNM [address], [place], [address], [facility] 05/21/2025 12:18:32 OBGyn Episode Ob Episode Information Episode Created Date Number of Fetuses Patient Bloodtype Patient rh Status Prepregnancy Weight lbs Domestic Partner Domestic Partner Phone Father Name Wharf Tender Status 12/05/19 25 1 CLOSED Fetus Data First Name Last Name Admitted to NICU Weight (g) Sex Living Outcome Pediatric Complications Fetus ID Race Codes Race Delivery Type 2863.07 2704 M Full Term [id number] Vaginal Delivery Gabino Calculation Initial Gabino Date Initial Exam Date Initial Exam Provider Initial Ultrasound Date Last Menstrual Period Date Ultra Sound Weeks Gestation 0 Eighteen To Twenty Week Gabino Update Ultra Sound Date Fundal Height At Umbil Quickening Date Ultra Sound Latest Weeks Gestation Final Gabino Confirmed By Final Gabino Confirmed Date Final Gabino Date Ultra Sound Latest Days Gestation 0 0 Menstrual History Last Menstrual Date Menses Monthly On Bcp Conception Prior Menses Frequency Hcg Plus Date Menarche Onset Age Delivery Information Delivery Date Delivery Type Labor Anesthesia Weeks Gestation Incision Type Labor Labor Length Hrs Delivered By Post Complications Tubal Sterilization Discharge Date Comments 3 40 Discharge Information Feeding Method Contraceptive Method Maternal HG B and HCT Levels Ob Episode Information Episode Created Date Number of Fetuses Patient Bloodtype Patient rh Status Prepregnancy Weight lbs Domestic Partner Domestic Partner Phone Father Name Wharf Tender Status 01/02/20 25 1 O Positive 197 Nixon OPEN Fetus Data First Name Last Name Admitted to NICU Weight (g) Sex Living Outcome Pediatric Complications Fetus ID Race Codes Race Delivery Type [id number] Problems Problem Notes 2 LVEIF rpt 4 weeks, NIPT wn l Problem Name Start Date End Date Resolution Snomed Code Not e Herpes simplex 01/01/2025 [id number] plan 36 week valcyclovir Gabino Calculation Initial Gabino Date Initial Exam Date Initial Exam Provider Initial Ultrasound Date Last Menstrual Period Date Ultra Sound Weeks Gestation 05/29/2025 12/04/2024 [email or web address] 12/04/2024 08/22/2024 15 Eighteen To Twenty Week Gabino Update Ultra Sound Date Fundal Height At Umbil Quickening Date Ultra Sound Latest Weeks Gestation Final Gabino Confirmed By Final Gabino Confirmed Date Final Gabino Date Ultra Sound Latest Days Gestation 0 05/29/20 25 0 Pre- Flowsheet Flowsheet Date 01/01/2025 Guerrier Score Blood Edema Fundus Height Fundus Units Glucose Ketones Leukocytes Nitrite Labor Signs Protein Cervic Dilation Cervic Effacement Cervic Station neg none none trace Type Weight in lbs Pre/Post Dialysis Refused Weight 198.838271035447 BP Diastolic BP Location Tested BP Systolic BP Type 72 116 Fetus Heart Rate Present Fetus Movement A Yes Comments Patient states that is havin g some cramping. reviewed history of one uncomplicated vaginal , hsv, plan valtrex at 36 weeks, 2 LVEIF normal nipt rpt 4 weeks, doing well, education done begin routine careconsidering home Flowsheet Date 01/29/2025 Guerrier Score Blood Edema Fundus Height Fundus Units Glucose Ketones Leukocytes Nitrite Labor Signs Protein Cervic Dilation Cervic Effacement Cervic Station Type Weight in lbs Pre/Post Dialysis Refused BP Diastolic BP Location Tested BP Systolic BP Type Fetus Heart Rate Present Fetus Movement Comments Flowsheet Date 01/29/2025 Guerrier Score Blood Edema Fundus Height Fundus Units Glucose Ketones Leukocytes Nitrite Labor Signs Protein Cervic Dilation Cervic Effacement Cervic Station Type Weight in lbs Pre/Post Dialysis Refused 201.255602886290 BP Diastolic BP Location Tested BP Systolic BP Type 72 L arm 115 sitting Fetus Heart Rate Present A Present Fetus Movement A Yes Comments Good movement. No cram ping or bleeding. No issues since last visit. EFW 71%, breech. EIF still present, discussed with patient. Repeat at 32 weeks. Discussed GCT and labs for next visit. RTC 4 weeks. Flowsheet Date 02/26/2025 Guerrier Score Blood Edema Fundus Height Fundus Units Glucose Ketones Leukocytes Nitrite Labor Signs Protein Cervic Dilation Cervic Effacement Cervic Station neg none Type Weight in lbs Pre/Post Dialysis Refused Weight 209.737489650816 BP Diastolic BP Location Tested BP Systolic BP Type 79 L arm 123 sitting Fetus Heart Rate Present A 150 Fetus Movement A Yes Comments Good movement. No cram ping or bleeding. GCT and labs today. Need to discuss tdap at next visit. RTC 2 weeks. Flowsheet Date 03/26/2025 Guerrier Score Blood Edema Fundus Height Fundus Units Glucose Ketones Leukocytes Nitrite Labor Signs Protein Cervic Dilation Cervic Effacement Cervic Station Type Weight in lbs Pre/Post Dialysis Refused BP Diastolic BP Location Tested BP Systolic BP Type Fetus Heart Rate Present Fetus Movement Comments Flowsheet Date 03/26/2025 Guerrier Score Blood Edema Fundus Height Fundus Units Glucose Ketones Leukocytes Nitrite Labor Signs Protein Cervic Dilation Cervic Effacement Cervic Station Type Weight in lbs Pre/Post Dialysis Refused 212.67873265428 BP Diastolic BP Location Tested BP Systolic BP Type 80 R arm 102 sitting Fetus Heart Rate Present Fetus Movement A Yes Comments +FM US efw 29%, ac 11%, prec autions and education, vertex f/u 2 weeks Flowsheet Date 04/11/2025 Guerrier Score Blood Edema Fundus Height Fundus Units Glucose Ketones Leukocytes Nitrite Labor Signs Protein Cervic Dilation Cervic Effacement Cervic Station Type Weight in lbs Pre/Post Dialysis Refused Weight 216.411015550249 BP Diastolic BP Location Tested BP Systolic BP Type 79 L arm 131 sitting Fetus Heart Rate Present A 151 Present Fetus Movement A Yes Comments doing well +FM declines tdap , call for preadmission, precautions and education, discussed gbs f/u 2 weeks Flowsheet Date 04/15/2025 Guerrier Score Blood Edema Fundus Height Fundus Units Glucose Ketones Leukocytes Nitrite Labor Signs Protein Cervic Dilation Cervic Effacement Cervic Station Type Weight in lbs Pre/Post Dialysis Refused BP Diastolic BP Location Tested BP Systolic BP Type Fetus Heart Rate Present Fetus Movement Comments Flowsheet Date 04/23/2025 Guerrier Score Blood Edema Fundus Height Fundus Units Glucose Ketones Leukocytes Nitrite Labor Signs Protein Cervic Dilation Cervic Effacement Cervic Station Type Weight in lbs Pre/Post Dialysis Refused BP Diastolic BP Location Tested BP Systolic BP Type Fetus Heart Rate Present Fetus Movement Comments Flowsheet Date 04/23/2025 Guerrier Score Blood Edema Fundus Height Fundus Units Glucose Ketones Leukocytes Nitrite Labor Signs Protein Cervic Dilation Cervic Effacement Cervic Station Type Weight in lbs Pre/Post Dialysis Refused Weight 219.977510037149 BP Diastolic BP Location Tested BP Systolic BP Type 81 L arm 121 sitting Fetus Heart Rate Present Fetus Movement A Yes Comments efw 22 % ac 13% call for pre admit,, wants to keep placenta, education and precautions reviewed f/u 1 week plan GBS Flowsheet Date 05/02/2025 Guerrier Score Blood Edema Fundus Height Fundus Units Glucose Ketones Leukocytes Nitrite Labor Signs Protein Cervic Dilation Cervic Effacement Cervic Station Type Weight in lbs Pre/Post Dialysis Refused Weight 221.663081520595 BP Diastolic BP Location Tested BP Systolic BP Type 75 L arm 120 sitting Fetus Heart Rate Present Fetus Movement A Yes Comments taking valtrex doing well, + FM gbs collected, last baby labored right after 40 weeks, precautions and education f/u 1 week Flowsheet Date 05/09/2025 Guerrier Score Blood Edema Fundus Height Fundus Units Glucose Ketones Leukocytes Nitrite Labor Signs Protein Cervic Dilation Cervic Effacement Cervic Station Type Weight in lbs Pre/Post Dialysis Refused Weight 226.641977213075 BP Diastolic BP Location Tested BP Systolic BP Type 68 L arm 124 sitting Fetus Heart Rate Present A 145 Fetus Movement A Yes Comments ?d/c has uti and [facility], exam reveals white thick d/c, plan diflucan exam negative for lesions, gbs +, precautions and education f/u one week Flowsheet Date 05/21/2025 Guerrier Score Blood Edema Fundus Height Fundus Units Glucose Ketones Leukocytes Nitrite Labor Signs Protein Cervic Dilation Cervic Effacement Cervic Station Type Weight in lbs Pre/Post Dialysis Refused BP Diastolic BP Location Tested BP Systolic BP Type Fetus Heart Rate Present Fetus Movement Comments Flowsheet Date 05/21/2025 Guerrier Score Blood Edema Fundus Height Fundus Units Glucose Ketones Leukocytes Nitrite Labor Signs Protein Cervic Dilation Cervic Effacement Cervic Station Type Weight in lbs Pre/Post Dialysis Refused Weight 228.224997819023 BP Diastolic BP Location Tested BP Systolic BP Type 78 L arm 120 sitting Fetus Heart Rate Present Fetus Movement A Yes Comments +FM, doing well, US done efw 23% f/u one week, precautions and education Menstrual History Last Menstrual Date Menses Monthly On Bcp Conception Prior Menses Frequency Hcg Plus Date Menarche Onset Age 0108/22/2024 Delivery Information Delivery Date Delivery Type Labor Anesthesia Weeks Gestation Incision Type Labor Labor Length Hrs Delivered By Post Complications Tubal Sterilization Discharge Date Comments Discharge Information Feeding Method Contraceptive Method Maternal HG B and HCT Levels
--- OUTSIDE RECORDS SUMMARY | 2025-05-27 17:24 | XMS_ITS | Patient Health Record ---
Author Organization [facility] Address [address] [place] [address] Care Team Providers Care Marketing Database Coordinator Name Role Phone Cristian Stewart Unavailable [phone] Reason For Referral No Information Medications Medication [...] W/U Status Risk Notes Problem Well child (785772473) Well child (V20.2) 05/17/2018 Active confirmed Problem Well child (284859613) Well child (997562632) 05/17/2018 Active confirmed Problem Normal weight (73512618) Normal weight (V85.52) 05/17/2018 Active confirmed Problem Normal weight (37866672) Normal weight (Z68.52) 05/17/2018 Active confirmed Problem Well child (644809588) Well child (Z00.129) 05/17/2018 Active confirmed Plan Of Treatment No Information
--- OUTSIDE RECORDS SUMMARY | 2025-05-27 17:24 | XMS_ITS | Clinical Summary ---
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
[2025-05-27 17:25] LABS: HIV 1/2 Ab P24 Ag Result Negative (Negative)
[2025-05-27] MEDS: LACTATED RINGERS 1,000 ML 125 ML IV CONT (17:26)
--- NOTE | 2025-05-27 20:27 | WPDOBADMIT ---
Obstetrics - Admit Note Admission Note: record reviewed. No pertinent additions to the history and/or any subsequent changes in the physical findings that are not consistent with the expected course of the were found. Patient presents in labor, SROM around 1999. GBS positive, receiving ampicillin. Anticipate . Additions to the history and/or subsequent changes in the physical findings follow. None.
[2025-05-27] MEDS: OXYTOCIN 30 UNITS/NS 500 ML 30 UNITS/500 ML BAG 999 UNITS IV CONT (20:46)
--- NOTE | 2025-05-27 20:55 | PM.OBPRVD ---
OB - Vaginal Delivery Note Procedure Delivery date: 05/27/25 Induction method: None Delivery monitor: External FHT and External Uterine Route of delivery: Episiotomy description: None Laceration Description: None Specimen: No Quantitative Blood Loss (ml): 100 Anesthesia type: Epidural Disposition: Floor Complications: No immediate complications Narrative: See H&P and notes for details on patient's admission and labor. She progressed to complete cervical dilation and at the appropriate time began pushing. With adequate expulsive efforts by the mother, the baby's head was delivered without difficulty. Nuchal cord was present x1 and was easily reduced. The baby's right shoulder was anterior and delivered under the pubic symphysis without difficulty. The posterior shoulder and the rest of the baby delivered without difficulty. The umbilical cord was doubly clamped and cut after 60 seconds of delayed cord clamping. Care of the was then assumed by the nursing staff. [place] Baby Date of : 05/27/25 Gestational Age by Date: 39 Infant gender: Female presentation: vertex position: Left Occiput Posterior Placenta delivery description: Expressed Cord Vessel Description: 3 Vessels, Nuchal Cord, Reduced, Delayed Cord Clamping and Around Body
[2025-05-27] MEDS: OXYTOCIN 30 UNITS/NS 500 ML 30 UNITS/500 ML BAG 125 UNITS IV CONT (21:28)
--- NOTE | 2025-05-27 23:22 | OBPPTRN ---
Patient transferred to post room #281 via wheelchair. Oriented to unit, room, information board, rooming in, admission packet and security measures. Patient verbalizes understanding.
[2025-05-27] MEDS: IBUPROFEN 600 MG TABLET PO (23:52)
[2025-05-28 04:17] VITALS: BP 100/54; PULSE 77; RESP 16; TEMP 36.9; O2SAT 99
[2025-05-28 05:27] LABS: Hematocrit 29.8 % (37.0-47.0); Hemoglobin 9.2 g/dL (12.0-15.0)
[2025-05-28 07:15] VITALS: BP 107/47; PULSE 73; RESP 16; TEMP 37.3; O2SAT 99
--- NOTE | 2025-05-28 07:38 | P.PNOB_ITS ---
OB - PN: Subj Subjective Date/time seen: 05/28/25 07:38 Interval history: pp day #1 doing well no complaints OB - PN: Obj Data Labs 05/28/25 04:20 Labs: Laboratory Results - last 24 hr 05/27/25 05/28/25 16:11 04:20 WBC 12.2 H RBC 4.44 Hgb 10.3 L 9.2 L Hct 33.8 L 29.8 L MCV 76.1 L MCH 23.2 L MCHC 30.5 L RDW 16.9 H Plt Count 289 MPV 12.6 H Immature Gran % (Auto) 0.5 Neut % (Auto) 66.2 Lymph % (Auto) 25.3 [place] % (Auto) 7.4 Eos % (Auto) 0.2 Baso % (Auto) 0.4 Lymph # (Auto) 3.08 [place] # (Auto) 0.9 H Eos # (Auto) 0.0 Baso # (Auto) 0.1 Abs Immat Gran (auto) 0.06 H Absolute Neuts (auto) 8.1 H Absolute Nucleated RBC 0.000 Nucleated RBC % 0.0 Syphilis IgG/IgM Ab Non-reactive HIV 1&2 Ab/P24 Ag 4thGn Negative Blood Type O Positive Antibody Screen Negative OB - PN A/P Plan day: 1 Plan: routine care Time Spent With Patient Time: Total time spent is greater than 50% in coordination of care (as documented) at patient's floor/unit and/or counseling patient: Review of Systems 2 Review of Systems: All systems reviewed & are unremarkable except as noted in HPI and below Exam 2 Const: General: cooperative, healthy appearing and comfortable Resp: Effort & Inspection: normal respiratory effort Cardio: Rate: regular rate Skin: General skin exam: normal color
--- NOTE | 2025-05-28 08:40 | PC.NURSE ---
Introductions were made, then consulted with patient to assess needs related to . Mother led the conversation with her?plans to feed?her and the?experience so far. Encouraged understanding of the benefits of skin to skin (demonstrating unwrapping infant and placing upright on her chest), stimulating with massage touch, changing positions to encourage wakefulness, how to watch for early feeding cues, responsive feeding, feeding on demand (aiming for 8-12 times in 24 hours, about every 2-3 hours), milk production, building/maintaining a milk supply, duration of feeding, signs of adequate intake/output and how to record on the feeding sheet. Mother works well with her infant with encouragement and education. Reviewed positioning and ear, shoulder, hip alignment, supporting the breast to facilitate a deep latch, asymmetrical latch (off-center), leading with the chin with a big, open, wide gape and body close to mother. Infant was unable to successfully feed on the [right] breast in [football] position. Mother had had infant skin to skin and she was rooting. Education given to the mother of how to visualize the suckling (with good rocking jaw motion), swallows (dropping of the lower jaw) and how to listen for drinking at the breast (the ka sound). Infant was [unable] to maintain latch, mother was able to hand express and received several drops of colostrum. Reviewed comfort measures of healing with a warm, wet washcloth to rinse breast, then leave open to air-dry, good handwashing when or touching the breast/nipples to prevent infection. Mother voiced understanding of skin to skin, stimulating with massage touch, responsive feedings, hand expressed colostrum, talking to to encourage if it has been 2 -2.5 hours since the start of the last , to call if infant does not latch, or if there is discomfort with . Resources used for education were facilitated with the [visual educational handouts/ tool/mom and baby guide], Inpatient/outpatient resources provided with business card, feeding sheet, name written on the communication board, and the mom/baby guide. Mother voiced understanding of information, demonstrated learning and will call if there is a request for assistance. Per mother she will need an insurance breast pump to use while here and to take home, she will let [facility] RN know when she is ready to have the breast pump set up. Reported to the Primary RN.
[2025-05-28] MEDS: IBUPROFEN 600 MG TABLET PO (11:30)
[2025-05-28] MEDS: LANOLIN (LANSINOH) 7.5 GM CREAM 1 APPLIC TOPICAL (11:32)
[2025-05-28 12:01] VITALS: BP 122/56; PULSE 88; RESP 18; TEMP 37.5; O2SAT 99
--- NOTE | 2025-05-28 16:25 | PC.NURSE ---
Insurance breast pump provided due to mother's request. Instructions given on cleaning, care, usage, that there should be no pain, pumping schedule for milk production, collection, and storage of human milk. Patient was assessed for correct placement, flange size, to pump for comfort and nipple stretching/stimulation for adequate milk production every 3 hours (8 times in 24 hours) 1-2 times at night. Mother was encouraged to record the pumping schedule on the feeding sheet.?Mother voiced understanding of the education shared along with mom/baby guide and the pump measurement, flange fit handout for additional resource information. Paperwork to be faxed to [facility] Medical and copy of purchase agreement given to mother. [facility] Referral also completed and to be faxed to [facility] with original copy placed on mother's chart. Reported to the Primary RN.
--- NOTE | 2025-05-31 04:51 | PM.OBDSVD ---
DS: Admitting Diagnosis Discharge Date 05/28/25 Admitting Diagnosis labor DS: Discharge Diagnosis Discharge Diagnosis (1) (spontaneous vaginal delivery): Code(s): O80 - Encounter for full-term uncomplicated delivery Status: Acute OB - DS: Summary OB Procedures : None OB Procedures Intrapartum: Spontaneous Vag Delivery OB Procedures: : None Peripartum Data Laceration Description: None Episiotomy description: None Time Spent with Patient Time attestation: Total time spent providing and/or coordinating discharge services: Discharge Plan Discharge Attending physician on discharge: Kirby Lawson Consulting providers: Nany Stovall Discharging Clinician: Nany Stovall Anticipated Discharge Date/Time: 05/28/25 17:12 Patient Disposition: Home Activity: pelvic rest Diet: regular Discharge Instructions: Education: Mom and Baby Guide Given to: Mother Follow-Up: Call your delivering provider's office for an appointment to be seen in: 4 Weeks BREAST CARE: * Wear a snug supportive bra. * For engorgement discomfort: Breast Feeding: * Apply warm moist washcloths * Express milk as needed to relieve engorgement * Wear loose clothing Bottle Feeding: * May apply ice packs * For sore nipples: * Identify correct latch-on * Apply warm moist washcloths before and after nursing * Air dry nipples after nursing * May apply Lansinoh cream to nipples PERINEAL CARE: * Until bleeding stops, use your deandre bottle after urinating * Change your pad frequently throughout the day * You may take sitz baths several times a day (fill your bathtub with warm water and soak for 20 minutes.) Do NOT bathe in the water * No tub baths until seen by your physician - You may shower ACTIVITY: * Rest as much as possible. * Do not exercise or lift anything heavier than your baby (such as laundry or other children.) * Avoid stairs or driving as much as possible. * Do not put anything into the vagina. No douching, tampons, or sexual activity until seen by physician. NOTIFY PHYSICIAN IF YOU HAVE ANY QUESTIONS OR IF ANY OF THE FOLLOWING SYMPTOMS OCCUR: * If your perineum becomes red, swollen, or more painful than what you have experienced in the hospital. * If your vaginal bleeding becomes foul smelling. * If your vaginal bleeding becomes more heavy than a period or if your bleeding changes from pink to bright red. However, you may pass an occasional walnut-sized clot once or twice for the first week . * If you experience a sharp, shooting pain in you calves. * If you discover a hard, reddened area on your breast or if you experience flu-like symptoms. DIET: * Eat regular, well-balanced meals. * Drink plenty of fluids daily. If , drink to thirst. Patient Instructions: Antibiotic Form Patient Language: Luxembourger Stand Alone Forms: General Discharge Information Follow-up/Referrals: Fabricio Loyola MD [Physician, [facility]] - 4 Weeks Discharge Medications: Continued PNV no.95-ferrous fumarate-FA [] 28 mg iron- 800 mcg tablet 1 tablet PO DAILY valacyclovir [Valtrex] 500 mg tablet 500 mg PO Q12H sertraline 100 mg tablet Date of admission: 05/27/25 15:45 Primary Care Provider: Steve,Kenyetta Admitting Provider: Kirby Lawson Attending physician on admission: Kirby Lawson Condition: Stable
== END 2025-05-28 18:23 | disposition home or self-care (01) | DRG 560 ==
LOC: ANHLDR 18:13 → ANHOB2 23:30
PROVIDERS: Obstetrics & Gynecology; Admitting Provider Obstetrics & Gynecology; Visit Provider Obstetrics & Gynecology
DX: O99.824 Streptococcus B carrier state complicating childbirth (principal); Z3A.39 39 weeks gestation of pregnancy; Z37.0 Single live birth; O69.81X0 Labor and delivery complicated by cord around neck, without compression, not applicable or unspecified
CPT/HCPCS: 36415; 85014; 85018; 85025; 86593; 86703; 86850; 86900; 86901; A9270; G0432; J0290; J2590; J2795; J7120